=== PATIENT | male | born 1990 ===

== ENCOUNTER 2022-11-17 19:37 | Emergency (ER) | payer MEDICAID ==
[~2022-11-17] VITALS: Ht 188 cm; Wt 70.5 kg
[2022-11-17 19:38] VITALS: BP 135/64
[2022-11-17] MEDS ORDERED: GRIS500T6 PO (21:04)
[2022-11-17] MEDS ORDERED: CLOT15CR29 TP (21:05)
== END 2022-11-17 22:17 | disposition home or self-care (01) ==
LOC: EMS 19:39
DX: B35.3 Tinea pedis (principal); F12.90 Cannabis use, unspecified, uncomplicated
CPT/HCPCS: 99283